=== PATIENT | female | born 1980 | race Asian ===

== ENCOUNTER 2017-09-25 12:37 | Outpatient (CLI) | payer OTHER ==
--- NOTE | 2017-09-25 14:42 | ULT ---
BILATERAL RENAL ULTRASOUND: Date: 09/25/17 HISTORY: Right flank pain. FINDINGS: Right kidney is 10.0 cm. There is very mild distention of the right renal pelvis. No masses are appar ent. Left kidney is 11.4 cm, with a normal appearance. Urinary bladder is incompletely distended. IMPRESSION: Mild distention right renal collecting system. This could represent a partial obstruction. Clinical c orrelation regarding other signs and symptoms of right urinary tract obstruction is required. CT may be helpful for further evaluation. POS: [facility]
== END 2017-09-25 12:38 | disposition home or self-care (01) ==
LOC: ULT 12:37
PROVIDERS: ATTEND Family Medicine
DX: R10.9 Unspecified abdominal pain (principal)
CPT/HCPCS: 76770

== ENCOUNTER 2017-10-06 10:40 | Outpatient (CLI) | payer OTHER ==
[~2017-10-06 10:40] MED LIST: Iopamidol 370 76% 100 ML VIAL ONE
--- NOTE | 2017-10-06 14:44 | CT ---
CT ABDOMEN AND PELVIS WITH AND WITHOUT IV CONTRAST: INDICATIONS: History of hydronephrosis and right-sided abdominal pain. COMPARISON: Renal ultrasound, dated 09/25/2017. CONTRAST: Isovue-370 9 mL. FINDINGS: A small amount of contrast is seen within the renal collecting systems on the pre-contrast images, li jean paul related to test bolusing. No renetta hydronephrosis is demonstrated. No solid renal lesion is no isacc. There is a tiny, 4 mm, subpleural pulmonary nodule within the right lower lobe, adjacent to the right major fissure. The liver demonstrates a hypodensity within segment 7 of the right hepatic lobe. The pancreas and spleen appear within normal limits. The adrenal glands appear within normal limits. There is a normal appendix in the right lower quadrant of the abdomen. The bladder, rectum, and perirectal soft tissues are unremarkable. A small amount of free fluid is s een within the pelvis. There is a moderate amount of retained stool within the colon. No definite a cute osseous abnormality is evident. IMPRESSION: 1. No hydronephrosis demonstrated. 2. Tiny hypodensity within the right hepatic lobe. 3. Normal appendix. 4. Moderate amount of retained stool within the colon. POS: [facility]
== END 2017-10-06 10:41 | disposition home or self-care (01) ==
LOC: SCSCT 10:40
PROVIDERS: ATTEND Family Medicine
DX: N13.30 Unspecified hydronephrosis (principal); K76.89 Other specified diseases of liver
CPT/HCPCS: 74178

== ENCOUNTER 2017-10-07 10:37 | Outpatient (CLI) | payer OTHER ==
--- NOTE | 2017-10-07 13:38 | MMO ---
BILATERAL SCREENING MAMMOGRAM: HISTORY: Screening. COMPARISON: None. FINDINGS: Bilateral CC and MLO mammograms were performed with computer-aided detection. Breasts are heterogeneously dense which may obscure small masses. There is a small group of microcal cifications of the right breast 12 o'clock middle depth. No other abnormal calcifications are presen t. IMPRESSION: BI-RADS category 0: incomplete. Need additional imaging evaluation and/or prior mammograms for comp arison. There is a group of microcalcifications right breast middle depth approximately 12 o'clock. Spot compression magnification is recommended. Ultrasound is also recommended if deemed necessary. POS: [facility]
== END 2017-10-07 10:38 | disposition home or self-care (01) ==
LOC: SCSMAMMO 10:37
PROVIDERS: ATTEND Family Medicine
DX: Z12.31 Encounter for screening mammogram for malignant neoplasm of breast (principal); R92.0 Mammographic microcalcification found on diagnostic imaging of breast
CPT/HCPCS: 77067

== ENCOUNTER 2017-10-09 10:10 | Outpatient (CLI) | payer OTHER | END 2017-10-09 10:11 | disposition home or self-care (01) | LOC: BICMAMMO 10:10 | PROVIDERS: ATTEND Family Medicine | DX: R92.0 Mammographic microcalcification found on diagnostic imaging of breast (principal); R92.1 Mammographic calcification found on diagnostic imaging of breast | CPT/HCPCS: G0279 ==

== ENCOUNTER 2018-10-11 13:56 | Outpatient (CLI) | payer OTHER ==
--- NOTE | 2018-10-11 15:34 | CT ---
CT ABDOMEN AND PELVIS WITH AND WITHOUT IV CONTRAST: 10/11/2018 PROVIDED CLINICAL HISTORY: Hematuria. COMPARISON: 10/06/2017 FINDINGS: The visualized lung bases are free of significant opacity. The liver, spleen, kidneys, pancreas, and adrenal glands demonstrate an unremarkable CT appearance. There is no evidence for urinary tract calculi or hydronephrosis. The delayed images demonstrate no evidence for filling defect involving the renal collecting systems or opacified ureters. The urinary bladder is decompressed and not well evaluated. There is no bowel dilatation, inflammatory fat stranding, free fluid, or lymph node enlargement appar ent. The osseous structures demonstrate no concerning lytic or blastic lesions. IMPRESSION: No evidence for an acute process. POS: [facility]
== END 2018-10-11 13:57 | disposition home or self-care (01) ==
LOC: SCSCT 13:56
PROVIDERS: ATTEND Urology
DX: R31.0 Gross hematuria (principal)
CPT/HCPCS: 74178

== ENCOUNTER 2018-10-27 14:49 | Outpatient (CLI) | payer OTHER ==
--- NOTE | 2018-11-01 13:24 | MMO ---
Bilateral MAMMO Bilat Screen [facility]. CLINICAL HISTORY: Patient is 38 years old and is seen for screening. The patient has no family history of breast cancer. The patient has no personal history of cancer. VIEWS: The views performed were: bilateral craniocaudal and bilateral mediolateral oblique. FILMS COMPARED: The present examination has been compared to prior imaging studies performed at [facility] on 10/09/2017, and at [facility] on 10/07/2017. This study has been interpreted with the assistance of computer-aided detection. MAMMOGRAM FINDINGS: The breasts are heterogeneously dense, which could obscure a lesion on mammography. There are stable benign appearing calcifications seen in both breasts. There are no suspicious masses, suspicious calcifications, or new areas of architectural distortion. IMPRESSION: THERE IS NO MAMMOGRAPHIC EVIDENCE OF MALIGNANCY. A ROUTINE FOLLOW-UP MAMMOGRAM IN 1 YEAR IS RECOMMENDED. ACR BI-RADS Category 2 - Benign finding MAMMOGRAPHY NOTE: 1. A negative mammogram report should not delay a biopsy if a dominant of clinically suspicious mass is present. 2. Approximately 10% to 15% of breast cancers are not detected by mammography. 3. Adenosis and dense breasts may obscure an underlying neoplasm.
== END 2018-10-27 14:50 | disposition home or self-care (01) ==
LOC: SCSMAMMO 14:49
PROVIDERS: ATTEND Family Medicine
DX: Z12.31 Encounter for screening mammogram for malignant neoplasm of breast (principal)
CPT/HCPCS: 77067

== ENCOUNTER 2019-05-10 16:46 | Outpatient (CLI) | payer OTHER ==
[2019-05-10 17:16] LABS: Hemoglobin 14.3 g/dL (12.0-16.0); Mean Corpuscular HGB CONC 33.9 g/dL (32.0-36.0); Mean Corpuscular Hemoglobin 30.6 pg (27.0-31.0); Mean Corpuscular Volume 90.3 fL (78.0-98.0); Mean Platelet Volume 8.4 fL (7.4-10.4); Platelet Count 218 thou/uL (130-400); RBC Distribution Width 10.9 % (11.5-14.5); Red Blood Cell (RBC) Count 4.66 mill/uL (4.20-5.40); White Blood Cell (WBC) Count 8.3 thou/uL (4.8-10.8)
[2019-05-10 17:22] LABS: PTT 28.3 SEC (22.9-36.1); Prothrombin Time 13.6 SEC (12.0-14.7)
[2019-05-10 17:33] LABS: Bilirubin Negative (Negative); Blood, Urine Negative (Negative); Clarity Clear (Clear); Glucose, Urine (Dipstick) Normal (Negative); Leukocyte Negative Leu/uL (Negative); Nitrite Negative (Negative); Protein, Urine (Dipstick) Negative (Neg-Trace); RBC/HPF 0-3 HPF (0-3); Squamous Epithelial 0-3 HPF (0-3); Urobilinogen Normal mg/dL (Less than 2); WBC/HPF 0-3 HPF (0-3)
[2019-05-10 17:35] LABS: Bacteria/HPF 1+ HPF (None Seen)
[2019-05-10 17:52] LABS: Anion Gap 13 mmol/L (10-20); BUN (Urea Nitrogen) 9 mg/dL (7.0-18.7); Calc. Creatinine Clearance 0 mL/min (70-130); Calcium 9.5 mg/dL (7.8-10.44); Carbon Dioxide 24 mmol/L (22-29); Chloride 107 mmol/L (98-107); Estimated GFR-MDRD 90; Glucose 87 mg/dL (70-105); Potassium 4.1 mmol/L (3.5-5.1); Sodium 140 mmol/L (136-145)
== END 2019-05-10 16:47 | disposition home or self-care (01) ==
LOC: LABBT 16:46
PROVIDERS: ATTEND Urology
DX: Z01.812 Encounter for preprocedural laboratory examination (principal)
CPT/HCPCS: 80048; 81001; 85027; 85610; 85730; 87086

== ENCOUNTER 2019-05-25 06:05 | Day surgery (SDC) | payer OTHER ==
[2019-05-10 16:44] VITALS: BMI 21.5
[2019-05-25] MEDS ORDERED: Fentanyl 100 MCG/2 ML VIAL ONE (06:49)
[2019-05-25] MEDS ORDERED: Midazolam HCl 2 mg/2 ml Vial ONE (06:49)
[2019-05-25] MEDS ORDERED: Levofloxacin 500 mg/D5W 100 ml Premix Bag ONE (06:56)
[2019-05-25] MEDS ORDERED: Propofol 500 MG/50 ML VIAL ONE (07:15)
[2019-05-25] MEDS ORDERED: Phenazopyridine HCl 97.5 MG TABLET ONE (09:12)
[2019-05-25] MEDS ORDERED: Oxybutynin 5 MG TAB ONE (09:12)
--- NOTE | 2019-05-25 10:26 | OP ---
DATE OF PROCEDURE: 05/25/2019 PREOPERATIVE DIAGNOSIS: A 38-year-old female, G1, P3 with urethral stricture, initial caliber 12-[place]. POSTOPERATIVE DIAGNOSIS: A 38-year-old female, G1, P3 with urethral stricture, initial caliber 12-[place]. PROCEDURE PERFORMED: Cystoscopy, urethral calibration and dilatation. ANESTHESIA: TIVA. COMPLICATIONS: None apparent. DISPOSITION: To recovery room in stable condition. SPECIMEN: None. DRAINS: None. INDICATIONS FOR PROCEDURE AND HISTORY: This is a 38-year-old female, with history of G1, P3, triplets, delivered via since known history of sensation of incomplete void after hysterectomy back in 2012. She initially presented with history of hematuria, upper tract imaging is grossly unremarkable, cystoscopy in my office demonstrated a 12-[place] urethral caliber and deviated urethra anteriorly. As it was uncomfortable for her to undergo local dilatation, she presents today for exam under anesthesia. She recently presented to my office with sensation of hesitancy, slow stream with no significant postvoid residual. DESCRIPTION OF PROCEDURE: After an informed consent was signed, the patient was taken to the operating room, placed in a dorsal lithotomy position with the genital area prepped and draped in the usual surgical sterile fashion. Broad-spectrum antibiotics were provided. I first performed the rigid cystoscopy with a 17- [place] scope. This demonstrated as previous anteriorly deviated urethra; however, no gross resistance passing. It passed without significant issues. No lesions in the urethra were seen. Bladder was grossly unremarkable with the UOs identified in normal orthotopic position with no evidence of bladder stone and trabeculation of concern. At this time, I did dilate her urethra with the rigid cystoscope under visual guidance at 22 and 25F without significant issues. She is subjective complaint of slow stream we did dilate further. Subsequently, using female dilators, we dilated her urethra gently to 32 without significant issues. As her urethral stenosis has significantly improved, and it was passively dilated to 32 without significant issues, I did not feel that she needed to be discharged with indwelling [place] catheter as there was no significant obstruction per se as previously noted urethral stricture as it was significantly improved. She is discharged with ciprofloxacin for 3 days, Azo p.r.n., Ditropan 5 mg one p.o. q.8 hours p.r.n. for bladder spasm. She will return to clinic in 2-3 months, appointment provided for August for PVR check. Job ID: [id number] [id number]
== END 2019-05-25 10:40 | disposition home or self-care (01) ==
LOC: SDC 06:05
PROVIDERS: ATTEND Urology
PROC: 0T7D8ZZ Dilation of Urethra, Via Natural or Artificial Opening Endoscopic (ICD-10-PCS; principal; 2019-05-25)
DX: N35.92 Unspecified urethral stricture, female (principal); R35.0 Frequency of micturition; Z90.711 Acquired absence of uterus with remaining cervical stump
CPT/HCPCS: J1956; J2250; J2704; J3010